=== PATIENT | male | born 1965 | race Asian ===

== ENCOUNTER 2018-10-22 10:05 | Inpatient (IN) | payer BC ==
[~2018-10-22] VITALS: Ht 180.3 cm; Wt 109.7 kg
[2018-10-22 10:37] LABS: BASOPHILS % (AUTO) 0.7 % (0.0-2.0); EOSINOPHILS % (AUTO) 4.1 % (1.0-6.0); HEMATOCRIT 48.7 % (41-53); HEMOGLOBIN 16.7 g/dL (13.5-17.5); LYMPHOCYTES % (AUTO) 30.3 % (22.0-44.0); MEAN CORPUSCULAR HEMOGLOBIN 30.7 pg (26.0-34.0); MEAN CORPUSCULAR HGB CONC 34.2 G/dL (31.0-37.0); MEAN CORPUSCULAR VOLUME 90 fL (80-100); MONOCYTES # (AUTO) 0.5 K/uL (0.1-1.0); MONOCYTES % (AUTO) 7.3 % (2.0-9.0); NEUTROPHILS # (AUTO) 3.8 K/uL (1.8-7.7); NEUTROPHILS % (AUTO) 57.6 % (40.0-70.0); PLATELET COUNT (AUTO) 236 K/uL (150-450); RED BLOOD CELL COUNT(AUTO) 5.43 MIL/uL (4.50-5.90); RED CELL DISTRIBUTION WIDTH 12.6 % (11.5-14.5)
[2018-10-22 10:43] LABS: ANION GAP 4 mmol/L (8-16); CALCIUM, TOTAL 8.6 mg/dL (8.8-10.5); CARBON DIOXIDE 33 mmol/L (22-29); CHLORIDE 106 mmol/L (98-107); CREATININE 0.89 mg/dL (0.60-1.30); GLOMERULAR FILTR. RATE CALC > 60 mL/min (>60); GLUCOSE,RANDOM 90 mg/dL (70-110); POTASSIUM 3.9 mmol/L (3.5-5.1); SODIUM SERUM 143 mmol/L (136-145); UREA NITROGEN, BLOOD 13 mg/dL (7-18)
[2018-10-22] MEDS ORDERED: IOVERSOL 320 MG/ML 100 ML VIAL ONE (10:45)
[2018-10-22] MEDS ORDERED: SODIUM CHLORIDE 0.9% 100 ML ONE (10:45)
[2018-10-22 10:55] LABS: PROTHROMBIN TIME 10.8 SEC (9.4-11.6)
[2018-10-22 10:56] LABS: B-TYPE NATRIURETIC PEPTIDE 14 pg/mL (0-100)
[2018-10-22 11:07] LABS: ALANINE AMINOTRANSFERASE 41 U/L (12-78); ALBUMIN 3.8 g/dL (3.4-5.0); ALKALINE PHOSPHATASE 46 U/L (46-116); ASPARTATE AMINOTRANSFERASE 24 U/L (15-37); BILIRUBIN,TOTAL 0.6 mg/dL (0.1-1.0); CREATINE KINASE, TOTAL ONLY 248 U/L (39-308); TOTAL PROTEIN, SERUM 7.7 g/dL (6.4-8.2)
[2018-10-22] MEDS ORDERED: ASPIRIN 81 MG CHEWABLE TABLET PO ONE (13:00)
[2018-10-22] MEDS ORDERED: ACETAMINOPHEN 325 MG TABLET PO PRN ×2 (13:45→21:15)
[2018-10-22] MEDS ORDERED: 0.9% SODIUM CHLORIDE 10 ML SYRINGE IVP PRN ×2 (13:45→21:15)
[2018-10-22 14:21] VITALS: BP 137/100
[2018-10-22 15:32] VITALS: BP 114/67
[2018-10-22] MEDS ORDERED: PNEUMOCOCCAL VACCINE POLYVALENT 0.5 ML VIAL [PPSV23] IM ONE (16:30)
[2018-10-22] MEDS: PredniSONE 20 MG TABLET PO SCH (18:32)
[2018-10-22 20:03] VITALS: BP 133/78
[2018-10-22] MEDS: ACYCLOVIR 200 MG CAPSULE PO SCH (20:20)
[2018-10-22] MEDS ORDERED: ZOLPIDEM TARTRATE 5 MG TABLET PO PRN (21:15)
[2018-10-22] MEDS ORDERED: ONDANSETRON HCL 4 MG/2 ML VIAL IVP PRN (21:15)
[2018-10-23] VITALS (7 sets, daily range): BP systolic 118–155; BP diastolic 68–99
[2018-10-23 05:58] LABS: BASOPHILS % (AUTO) 0.4 % (0.0-2.0); EOSINOPHILS % (AUTO) 0.4 % (1.0-6.0); HEMATOCRIT 47.6 % (41-53); HEMOGLOBIN 16.3 g/dL (13.5-17.5); MEAN CORPUSCULAR HEMOGLOBIN 30.6 pg (26.0-34.0); MEAN CORPUSCULAR HGB CONC 34.3 G/dL (31.0-37.0); MEAN CORPUSCULAR VOLUME 89 fL (80-100); MONOCYTES # (AUTO) 0.5 K/uL (0.1-1.0); MONOCYTES % (AUTO) 5.1 % (2.0-9.0); NEUTROPHILS # (AUTO) 7.3 K/uL (1.8-7.7); NEUTROPHILS % (AUTO) 74.1 % (40.0-70.0); PLATELET COUNT (AUTO) 251 K/uL (150-450); RED BLOOD CELL COUNT(AUTO) 5.35 MIL/uL (4.50-5.90); RED CELL DISTRIBUTION WIDTH 12.5 % (11.5-14.5)
[2018-10-23 06:06] LABS: ALANINE AMINOTRANSFERASE 38 U/L (12-78); ALBUMIN 3.7 g/dL (3.4-5.0); ALKALINE PHOSPHATASE 43 U/L (46-116); ANION GAP 7 mmol/L (8-16); ASPARTATE AMINOTRANSFERASE 21 U/L (15-37); BILIRUBIN,TOTAL 0.5 mg/dL (0.1-1.0); CALCIUM, TOTAL 8.2 mg/dL (8.8-10.5); CARBON DIOXIDE 30 mmol/L (22-29); CHLORIDE 106 mmol/L (98-107); CREATININE 1.03 mg/dL (0.60-1.30); GLOMERULAR FILTR. RATE CALC > 60 mL/min (>60); GLUCOSE,RANDOM 103 mg/dL (70-110); POTASSIUM 3.9 mmol/L (3.5-5.1); SODIUM SERUM 143 mmol/L (136-145); TOTAL PROTEIN, SERUM 7.4 g/dL (6.4-8.2); UREA NITROGEN, BLOOD 15 mg/dL (7-18)
[2018-10-23] MEDS: PredniSONE 20 MG TABLET PO SCH (08:54)
[2018-10-23] MEDS: ASPIRIN 81 MG CHEWABLE TABLET PO SCH (08:55)
[2018-10-23] MEDS: ACYCLOVIR 200 MG CAPSULE PO SCH ×4 (08:55→20:11)
[2018-10-23] MEDS: PANTOPRAZOLE SODIUM 40 MG/VIAL IVP SCH (08:57)
[2018-10-24 03:55] VITALS: BP 124/81
[2018-10-24 07:29] VITALS: BP 156/73
[2018-10-24] MEDS: PANTOPRAZOLE SODIUM 40 MG/VIAL IVP SCH (08:21)
[2018-10-24] MEDS: PredniSONE 20 MG TABLET PO SCH (08:21)
[2018-10-24] MEDS: ACYCLOVIR 200 MG CAPSULE PO SCH ×2 (08:21→12:26)
[2018-10-24] MEDS: ASPIRIN 81 MG CHEWABLE TABLET PO SCH (08:22)
[2018-10-24 11:27] VITALS: BP 124/76
[2018-10-24] MEDS ORDERED: ASPI-1182 PO (14:15)
[2018-10-24] MEDS ORDERED: ACYC200C PO (14:16)
[2018-10-24] MEDS ORDERED: PRED-284 PO (14:17)
== END 2018-10-24 14:40 | disposition home or self-care (01) | DRG 74 ==
LOC: EMS 10:06 → 5S 13:17
PROVIDERS: ADMIT Hospitalist; ATTEND Hospitalist
DX: G51.0 Bell's palsy (principal); I10 Essential (primary) hypertension; Z82.49 Family history of ischemic heart disease and other diseases of the circulatory system
CPT/HCPCS: 70450; 70496; 70551; 83735; 93005; 99291; C9113; G0378; J7050